=== PATIENT | male | born 1990 | race Caucasian/White ===

== ENCOUNTER 2017-05-13 14:27 | Emergency (ER) | payer BC ==
[2017-05-13 14:35] VITALS: RESP 18
--- NOTE | 2017-05-13 15:20 | EDPHY ---
H & P Stated Complaint: states feeling confused at work/has been off his celexa for 1 month/anxious Time Seen by Provider: 05/13/17 14:48 HPI/ROS: CHIEF COMPLAINT: Confusion, anxiety HISTORY OF PRESENT ILLNESS: The patient is a 27-year-old man with a history of depression and anxiety who had been taking Celexa prescribed by his psychiatrist. 1 month ago he discontinued it. He states that he felt great and spoke with his psychiatrist about this who was supportive. The patient however states that over the last couple of days he has began having again what he thinks are anxiety attacks where he feels like he has blanking out for a few seconds several times a day. He spoke with his psychiatrist office who suggested that he be sure get enough sleep. He states that he is sleeping plenty but his symptoms persist. He does not think that it is anything medical but thinks that it is psychiatric. He denies suicidality or homicidality. He denies recent drug use or stimulant abuse. REVIEW OF SYSTEMS: Constitutional: denies: chills, fever, recent illness, recent injury EENTM: denies: blurred vision, double vision, nose congestion Respiratory: denies: cough, shortness of breath Cardiac: denies: chest pain, irregular heart rate, lightheadedness, palpitations Gastrointestinal/Abdominal: denies: abdominal pain, diarrhea, nausea, vomiting, blood streaked stools Genitourinary: denies: dysuria, frequency, hematuria, pain Musculoskeletal: denies: joint pain, muscle pain Skin: denies: lesions, rash, jaundice, bruising Neurological: denies: headache, numbness, paresthesia, tingling, dizziness, weakness Hematologic/Lymphatic: denies: blood clots, easy bleeding, easy bruising Immunologic/allergic: denies: HIV/AIDS, transplant EXAM: GENERAL: Well-appearing, well-nourished and in no acute distress. HEAD: Atraumatic, normocephalic. EYES: Pupils equal round and reactive to light, extraocular movements intact, sclera anicteric, conjunctiva are normal. ENT: TMs normal, nares patent, oropharynx clear without exudates. Moist mucous membranes. NECK: Normal range of motion, supple without lymphadenopathy or JVD. LUNGS: Breath sounds clear to auscultation bilaterally and equal. No wheezes rales or rhonchi. HEART: Regular rate and rhythm without murmurs, rubs or gallops. ABDOMEN: Soft, nontender, normoactive bowel sounds. No guarding, no rebound. No masses appreciated. BACK: No CVA tenderness, no spinal tenderness, step-offs or deformities EXTREMITIES: Normal range of motion, no pitting or edema. No clubbing or cyanosis. NEUROLOGICAL: Cranial nerves II through XII grossly intact. Normal speech, normal gait. 5/5 strength, normal movement in all extremities, normal sensation PSYCH: Patient states that he has some anxiety. Otherwise has normal memory exam and discussion. SKIN: Warm, dry, normal turgor, no visible rashes or lesions. Source: Patient Exam Limitations: No limitations - Personal History Current Tetanus/Diphtheria Vaccine: Yes - Medical/Surgical History Hx Asthma: No Hx Chronic Respiratory Disease: No Hx Diabetes: No Hx Cardiac Disease: No Hx Renal Disease: No Hx Cirrhosis: No Hx Alcoholism: Yes Hx HIV/AIDS: No Hx Splenectomy or Spleen Trauma: No Other PMH: depression/etoh - Family History Significant Family History: No pertinent family hx - Social History Smoking Status: Never smoked Alcohol Use: Sober Drug Use: None Constitutional: Initial Vital Signs Temperature (C) 36.5 C 05/13/17 14:32 Heart Rate 93 05/13/17 14:32 Respiratory Rate 18 05/13/17 14:32 Blood Pressure 112/76 05/13/17 14:32 O2 Sat (%) 99 05/13/17 14:32 O2 Delivery Mode Room Air Allergies/Adverse Reactions: No Known Allergies Allergy (Unverified 05/13/17 14:31) Home Medications: Medication Instructions Recorded ANTABUSE 05/13/17 Medical Decision Making ED Course/Re-evaluation: The patient is primarily complaining of anxiety and thinks that his depression/ anxiety is responsible for "blanking out or being forgetful" at work. I recommended we start him back on his Celexa. He would prefer to follow up with his psychiatrist instead and see if there other options. He does not wish to have any blood work or acute treatment at this time. He does not think that this is a medical problem. He denies trauma or concussive type symptoms. He has not had a fever or recent illness. He denies lightheadedness palpitations weakness or stroke-like symptoms. He does not have a headache. We discussed the differential diagnosis and indications for returning to the emergency department. He feels comfortable and understands the risks involved. Differential Diagnosis: Partial list of the Differential diagnosis considered include but were not limited to; anxiety, depression, withdrawal and although unlikely based on the history and physical exam, I also considered substance abuse, concussion, infection, CVA, dissection. I discussed these differential diagnoses and the plan with the patient as well as the usual and expected course. The patient understands that the diagnosis is provisional and that in medicine we are not always correct and that further workup is often warranted. Usual and customary warnings were given. All of the patient's questions were answered. The patient was instructed to return to the emergency department should the symptoms at all worsen or return, otherwise to followup with the physician as we discussed. Departure - Departure Disposition: Home, Routine, Self-Care Clinical Impression: Anxiety Condition: Fair Instructions: Anxiety (ED) Referrals: [facility] [Other] - As per Instructions
[2017-05-13 15:38] VITALS: BP 116/80; PULSE 85; TEMP 97.5; O2SAT 92
== END 2017-05-13 15:38 | disposition home or self-care (01) ==
DX: F41.9 Anxiety disorder, unspecified (principal)